=== PATIENT | male | born 1945 | race Caucasian/White ===

== ENCOUNTER 2022-04-28 14:03 | Outpatient (CLI) | payer MEDICARE, SELFPAY ==
[2022-04-28 13:48] LABS: Albumin* 3.9 g/dL (3.3-5.0); Chloride* 104 mmol/L (96-114); Sodium* 139 mmol/L (135-149)
[2022-04-28 13:50] LABS: Carbon Dioxide* 28 mmol/L (20-32); Cholesterol* 160 mg/dL (90-199); Creatinine* 1.1 mg/dL (0.5-1.5); Estimated Glomerular Filt Rate 70 ml/min
[2022-04-28 13:51] LABS: Alanine Aminotransferase* 23 U/L (4-50); Alkaline Phosphatase* 61 U/L (40-150); Aspartate Amino Transferase* 28 U/L (12-35); Bilirubin Total* 0.7 mg/dL (0.1-1.5); Blood Urea Nitrogen* 29 mg/dL (7-30); Glucose* 106 mg/dL (60-115); Triglycerides* 178 mg/dL (40-149)
[2022-04-28 13:52] LABS: HDL Cholesterol* 57 mg/dL (>=40); LDL Cholesterol Calculated 67 mg/dL (<100)
[2022-04-28 14:14] LABS: PSA Screen* 0.69 ng/mL (0.10-4.00)
== END 2022-04-28 14:04 | disposition home or self-care (01) ==
PROVIDERS: PCP Physician Assistant Medical; Visit Provider Physician Assistant Medical
DX: Z00.00 Encounter for general adult medical examination without abnormal findings (principal); Z12.5 Encounter for screening for malignant neoplasm of prostate; Z13.6 Encounter for screening for cardiovascular disorders
CPT/HCPCS: 80053; 80061; 84153

== ENCOUNTER 2022-05-12 10:12 | Outpatient (CLI) | payer MEDICARE, SELFPAY | END 2022-05-12 10:13 | disposition home or self-care (01) | LOC: FRMREF 05-14 12:25 | PROVIDERS: PCP Physician Assistant Medical; Visit Provider Physician Assistant Medical | DX: Z00.00 Encounter for general adult medical examination without abnormal findings (principal); E78.5 Hyperlipidemia, unspecified; R35.0 Frequency of micturition | CPT/HCPCS: 87086 ==

== ENCOUNTER 2022-09-22 07:30 | Outpatient (RCR) | payer MEDICARE, SELFPAY ==
--- NOTE | 2022-09-23 13:39 | PT.OPE ---
PT [place] [facility] Eval PT [facility] Out[facility] Eval Start: 09/20/22 07:26 Freq: Status: Active Protocol: Document 09/20/22 14:10 ALICIAT (Rec: 09/20/22 14:12 CJT [id number]) E-signed By Nahum Kowalski PT Physical Therapy Outpatient Evaluation Insurance Information Recert Due Date 11/19/22 Insurance Name Medicare B Medical Diagnosis M54.31 - R sciatica Treating Diagnosis M54.31 - R sciatica Referring Judith Goodwin PA-C Subjective Subjective Pt presents with complaints of chronic R side sciatica ongoing for about 2 years now. Isn't sure when he started having this issues exactly. Last January/February he was chopping down old tree roots and using a stump edge grinder machine and had some back pain at that time. felt a pop in his L knee around that time as well and was taking a lot of IBP for his pain. Underwent 8 acupuncture treatments around that time and this helped to relieve the pain. Pts pain is better now but he has been sedentary for past 2 weeks. Pt wants to be active and wants to return to working out. His is disabled with MS and he needs to be able to help as much as possible. Pt does report increase in pain after about 5 -10 minutes of standing. Pt uses ice and heat frequently to help reduce his pain. Pt does have symptoms that extend to his lower leg at times, especially after extended periods of walking/standing. Sitting seems to make the pain better. Pt also complains of posterior knee pain on L that increases with bending in WB position. Squatting, bending. twisting makes pain worse. 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 Preferred Name Ray Precautions Therapy Limitations/Systems Review Not Limited Objective Other/Pertinent Objective Lumbar ROM Extension - 20 Flexion - can reach mid shins - feels stretch in HS R/L Side Bend - 18/18 R/L Rotation - mild impairments B LLD 93.0/92/0cm (R/L) R Hip ROM Flexion - 120 Abduction - 30 IR/ER - 10/30 Extension - 5 L Hip ROM Flexion - 120 Abduction - 30 IR/ER - 15/30 Extension - 5 R knee ROM - WNL L knee ROM - WNL R Hip Strength Flexion - 4+/5 MMT Abduction - 4/5 MMT Adduction - 5/5 MMT IR - 5/5 MMT ER - 5/5 MMT Extension - 4+/5 MMT L Hip Strength Flexion - 4+/5 MMT Abduction - 4/5 MMT Adduction - 5/5 MMT IR - 5/5 MMT ER - 5/5 MMT Extension - 4+/5 MMT R knee Extension - 5/5 MMT R Knee Flexion - 5/5 MMT L knee Extension - 5/5 MMT L knee Flexion - 4/5 MMT * pain with resisted knee flexion in posterior L knee R ankle DF - /5 MMT L ankle DF - /5 MMT Palpation: pt reports pain/ tenderness with palpation to Gait: FADIR: MELODY: SLR: Slump: Thessaly's: positive on L Kenneth's: positive for posterior L knee pain Assessment Assessment/Impression Pt is a 77 year old male who presents to OP PT clinic with complaints of R sided sciatica ongoing for past two years. Pts pain oroginates in posterior R hip and radiates to posterior R thigh and posterolateral R leg. This pain was reproduced with direct palpation to pts R piriformis mm in L S/L. Testing reveals deficits in pts hip strength and ROM (see objective). Pts sciatica appears to be caused by a tight piriformis on R at this time. He will benefit from massage, strengthening, and stretching to this region to reduce muscle tissue tension over R sciatic nerve. Kang also brought up concerns with his L knee today. He currently shows signs of meniscal tear on L with positive Thessaly's, Kenneth's tests. Upon palpation it does appear that Kang has a slight Huitron's cyst in his posterior L knee. He does note that this bump was substantially larger several months ago. I asked that he reach out to his PCP regarding a therapy order for this as well as potential advanced imaging to his L knee. He gives verbal understanding. The nature of the pts condition was explained and all questions were answered to the pts satisfaction. Skilled PT services are medically necessary to address deficits and return patient to highest level of function. Recommend physical therapy sessions 2/ week for 8 weeks. Pt agrees with this plan. Printout of HEP was given for I completion and pt gives verbal understanding of each exercise . Primary Functional Limitations Standing, carrying objects Plan of Care Rehabilitation Potential Excellent Physical Therapy Goals STG - To be completed in 2-3 weeks: 1. Pt will report reduction in sciatic pain by factor of 2 so that they may perform all ADLs with tolerable level of pain. 2. Pt will demonstrate ability to perform pelvic tilt with good coordination as indication of appropriate firing of pelvic and lumbar stabilizing muscles to provide greater support for pelvis and lumbar spine. 5. Pt will demonstrate 5/5 MMT for all LE motions without reproduction of pain to provide greater support to pelvis and lumbar spine. 5. Pt will report ability to tolerate 30+ minutes of standing so that they may shop for groceries at store. LTG - To be completed in 8-12 weeks: 1. Pt to be I with HEP so that they may I manage progression of symptoms. 2. Pt will report ability to sleep through the night without waking due to pain so that they may wake well rested with reduced mental fatigue during working hours. 3. Pt will demonstrate 5/5 MMT for both upper and lower abdominals to provide greater support to pelvis and lumbar spine. 4. Pt will report absence of hip and leg pain while helping his with all transfers so that he may fully assist her without pain. Treatment Plan/Direct Interventions Electrical Stimulation,Heat, Ice/Cold/Vasopneumatic,Joint Mobilization,Manual Therapy, Neuromuscular Re-ed,Self-Care/ Home Management,Therapeutic Activities,Therapeutic Exercises Frequency/Duration 2/week for 8 weeks Patient Will Be Discharged From Therapy Completion of LTG(s),Skills Plateau,Independent w/HEP, Independently Progressing Evaluation Billing Untimed Code Treatment Minutes 30 PT Eval No Charge No Complexity Low Certification Information Initial Certification Date 09/20/22 Ending Certification Date 11/19/22 Provider Signature Shows Agreement With POC & Medical Necessity Physician Signature & Date Requested Please Sign/Date Here Physician Comment/Change : Physician NPI Number #
== END 2022-10-05 12:30 | disposition home or self-care (01) ==
PROVIDERS: PCP Physician Assistant Medical; Visit Provider Physician Assistant Medical
DX: M54.31 Sciatica, right side (principal); Z51.89 Encounter for other specified aftercare
CPT/HCPCS: 97110; 97140; 97161

== ENCOUNTER 2023-06-28 09:58 | Outpatient (CLI) | payer MEDICARE, SELFPAY | END 2023-06-28 09:59 | disposition home or self-care (01) | LOC: NFLDREF 07-01 07:07 | PROVIDERS: PCP Physician Assistant Medical; Referring Provider Physician Assistant Medical; Visit Provider Physician Assistant Medical | DX: Z00.00 Encounter for general adult medical examination without abnormal findings (principal); E78.5 Hyperlipidemia, unspecified; R35.0 Frequency of micturition; E78.2 Mixed hyperlipidemia; K21.9 Gastro-esophageal reflux disease without esophagitis | CPT/HCPCS: 80053; 80061; 84153 ==

== ENCOUNTER 2024-06-11 08:15 | Outpatient (CLI) | payer MEDICARE, SELFPAY | END 2024-06-11 08:16 | disposition home or self-care (01) | LOC: NFLDREF 06-12 21:53 | PROVIDERS: PCP Physician Assistant Medical; Referring Provider Physician Assistant Medical; Visit Provider Physician Assistant Medical | DX: E78.2 Mixed hyperlipidemia (principal); N40.1 Benign prostatic hyperplasia with lower urinary tract symptoms; Z12.5 Encounter for screening for malignant neoplasm of prostate; Z13.29 Encounter for screening for other suspected endocrine disorder | CPT/HCPCS: 80053; 80061; 84443; G0103 ==

== ENCOUNTER 2024-08-07 12:37 | Outpatient (CLI) | payer MEDICARE, SELFPAY ==
--- NOTE | 2024-08-07 13:00 | CRLHL7_ITS ---
For Patients: As a result of the Century Cures Act, medical imaging exams and procedure reports are released immediately into your electronic medical record. You may view this report before your referring provider. If you have questions, please contact your health care provider. INDICATION: Low back pain. Right sciatica. COMPARISON: 07/25/2024. Technique Sagittal T1, T2, and STIR sequences. Axial T1 and T2 weighted sequences. FINDINGS: Grade 1 anterolisthesis of L4 on L5 measures approximately 4 mm. Otherwise, normal alignment. No fractures. No vertebral body loss of height. No ligamentous injury. No suspicious osseous lesions. Normal conus terminates at L1. T12-L1 L1-2: No spinal canal or neural foraminal narrowing. L2-3: Disc degeneration and posterior disc bulge. Mild narrowing of spinal canal. No neural foraminal narrowing. L3-4: Disc degeneration and posterior disc bulge. Ouua-ld-cvyindva narrowing of spinal canal. No neural foraminal narrowing. Most arthropathy. L4-5: Grade 1 anterolisthesis. Disc degeneration and posterior disc bulge. Moderate narrowing of spinal canal. Left subarticular recess narrowing with potential impingement of the traversing left L5 nerve root. No neural foraminal narrowing. Mild facet arthropathy. Bilateral facet joint effusions which may indicate joint instability. L5-S1: No spinal canal neural foraminal narrowing. Normal paraspinal soft tissues. IMPRESSION: 1. Grade 1 anterolisthesis of L4 on L5. Otherwise normal alignment. No fractures 2. Lumbar spondylosis. 3. At L2-3, mild narrowing of the spinal canal 4. At L3-4, [id number]-fn-[id number] narrowing of the spinal canal 5. At L4-5, moderate narrowing of the spinal canal. Potential impingement of the traversing left L5 nerve root. Dictated by Werner Vanegas MD @ 08/08/2024 1:52:11 PM (Electronically Signed)
== END 2024-08-07 12:38 | disposition home or self-care (01) ==
LOC: MRI 12:39
PROVIDERS: PCP Physician Assistant Medical; Visit Provider Family Medicine
DX: M54.41 Lumbago with sciatica, right side (principal); M47.892 Other spondylosis, cervical region; M51.26 Other intervertebral disc displacement, lumbar region; G89.29 Other chronic pain
CPT/HCPCS: 72148

== ENCOUNTER 2024-08-14 08:00 | Outpatient (RCR) | payer MEDICARE, SELFPAY ==
--- NOTE | 2024-06-20 16:52 | PT.OPE ---
PT [place] [facility] Eval PT [facility] Outpatient Eval Start: 06/20/24 13:18 Freq: Status: Active Protocol: Document 06/20/24 16:51 CJT (Rec: 06/20/24 16:52 CJT [id number]) E-signed By Nahum Kowalski PT Physical Therapy Outpatient Evaluation Insurance Information Recert Due Date 09/18/24 Insurance Name Medicare B Medical Diagnosis R side sciatica Treating Diagnosis R sciatica Imaging Report Information N/A Referring MD Judith Shields Subjective Preferred Name Ray Subjective Pt presents with complaints of sciatica. Reports that he has been experiencing a sharp pain that can come on at any times, especially when he is active with walking and hiking . Pedaling on a stationary bike is not an issue. Pain only occurs with WB-ing. Has been stretching daily. Demonstrates modified piriformis stretch in supine, piriformis test position in S/ L, and seated firugre-4 stretch. Pt reports that when his pain increases while walking, he will extend his arms out and bend forward while hanging onto his trekking poles. Demos L stretch position and notes that this provides relief. Wants to be able to hike without meds. Has been stretching many times daily for about a year now and this has not relieved symptoms. Pain Comments -03/14 Date of Last Physician Visit 06/18/24 Current Work Status Retired Precautions Therapy Limitations/Systems Review Not Limited Objective Other/Pertinent Objective Lumbar ROM Extension - no limitations, no pain; pt notes gradual production of pain in posterior hip and tingling in lower leg (L5 distribution with prolonged hold) Flexion - can reach just beyond mid hayes, feels some tension in R glute med/PSIS region R/L Side Bend - no limitations R/L Rotation - no limitations R Hip ROM Flexion - 120 IR/ER - 27/34 Extension - 10 L Hip ROM Flexion - 120 IR/ER - 30/32 Extension - 10 R Hip Strength Flexion - 4/5 MMT Abduction - 4/5 MMT Adduction - 5/5 MMT IR - 5/5 MMT ER - 5/5 MMT Extension - 4/5 MMT L Hip Strength Flexion - 5/5 MMT Abduction - 4+/5 MMT Adduction - 5/5 MMT IR - 5/5 MMT ER - 5/5 MMT Extension - 4/5 MMT R knee Extension - 5/5 MMT R Knee Flexion - 5/5 MMT L knee Extension - 5/5 MMT L knee Flexion - 5/5 MMT R ankle DF - 5/5 MMT L ankle DF - 5/5 MMT Palpation: pt reports pain/ tenderness with palpation to R piriformis and glute med Special Testing Slump: negative B SLR: negative B FADIR: negative B MELODY: negative B Carolina's: positive B (R>L) Piriformis: positive R Hamstring: minimally positive B Pelvis: relatively level Leg Length (R/L): 96.0cm/96. 0cm Assessment Assessment/Impression Kang is a very pleasant 79 year old male who presents to our clinic for evaluation and treatment of R side sciatica. Pts pain is reproduced in lumbar extension and relieved with flexion. While his R piriformis is very symptomatic and painful, I do not believe that he is dealing with piriformis syndrome that mimics sciatica. 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 He will likely benefit from education on positioning techniques as well as hip and core strengthening. Furthermore, his anterior hips are very tight which may also be exacerbating symptoms. I would like Kang to try therapy for 4 weeks. If he is not experiencing relief of symptoms, I would like to pursue MRI of the lumbar spine as well as cortisone injection, if appropriate. The nature of the pts condition was explained and all questions were answered to the pts satisfaction. Skilled PT services are medically necessary to address deficits and return patient to highest level of function. Recommend physical therapy sessions 1-2/ week for 4-8 weeks. Pt agrees with this plan. Printout of HEP was given for I completion and pt gives verbal understanding of each exercise . Primary Functional Limitations Walking, hiking Plan of Care Rehabilitation Potential Good Physical Therapy Goals STG - To be completed in 2-3 weeks: 1. Pt will report reduction in hip pain by factor of 2 so that they may go for short hikes with tolerable level of pain. 2. Pt will demonstrate ability to perform pelvic tilt with good coordination as indication of appropriate firing of pelvic and lumbar stabilizing muscles to provide greater support for pelvis and lumbar spine. LTG - To be completed in 8-12 weeks: 1. Pt to be I with HEP so that they may I manage progression of symptoms. 2. Pt will report ability to ambulate at least 30 minutes without symptoms of sciatica as indication of reduced pressure on exiting nerve root . 3. Pt will demonstrate 5/5 MMT for all LE motions without reproduction of pain to provide greater support to pelvis and lumbar spine. Treatment Plan/Direct Interventions Electrical Stimulation,Heat, Ice/Cold/Vasopneumatic,Joint Mobilization,Manual Therapy, Neuromuscular Re-ed,Self-Care/ Home Management,Therapeutic Activities,Therapeutic Exercises Frequency/Duration 1-2/week for 4-8 weeks Patient Will Be Discharged From Therapy Completion of LTG(s),Skills Plateau,Independent w/HEP, Independently Progressing Evaluation Billing Untimed Code Treatment Minutes 55 PT Eval No Charge No Complexity Low Certification Information Initial Certification Date 06/20/24 Ending Certification Date 09/18/24 Provider Signature Required Yes Provider Signature Shows Agreement With POC & Medical Necessity Physician NPI Number Write NPI# Here Physician Comment/Change : Physician Signature & Date Requested Please Sign/Date Here
--- NOTE | 2024-07-16 09:28 | PT.OPDN ---
PT [place] Outpatient Daily Note PT [place] Outpatient Daily Note Start: 06/20/24 13:18 Freq: Status: Active Protocol: Document 07/16/24 08:39 CJT (Rec: 07/16/24 09:28 CJT [id number]) E-signed By Nahum Kowalski, PT PT OP Daily Progress Note Visit Information Note Type Recert/Progress Note Visit Number 5 Physician Authorized Visits eval and treat Insurance Information Recert Due Date 09/18/24 Insurance Name Medicare B Medical Diagnosis R side sciatica Treating Diagnosis R sciatica Imaging Report Information N/A Referring MD Judith Shields Subjective Preferred Name Ray Subjective Isabell for a hike around 2:00pm yesterday. Feels a bit run down today. Pain Comments Date of Last Physician Visit 06/18/24 Home Exercise Home Exercise Comments Access Code: [email or web address] URL: [email or web address]/ Date: 06/26/2024 Prepared by: Nahum Kowalski Exercises - Supine Bridge - 1 x daily - 7 x weekly - 3 sets - 15-20 reps - Side Stepping with Resistance at Thighs - 1 x daily - 7 x weekly - 3 sets - 15-20 reps - Squat - 1 x daily - 7 x weekly - 3 sets - 10-15 reps - Side Plank on Knees - 1 x daily - 7 x weekly - 3 sets - 30-45 seconds hold - Supine Piriformis Stretch with Foot on Ground - 1-2 x daily - 7 x weekly - 1 sets - 30-60 seconds hold - Standing Quad Stretch with Table and Chair Support - 1-2 x daily - 7 x weekly - 1 sets - 30-60 seconds hold Objective Other/Pertinent Objective Lumbar ROM Extension - no limitations, no pain; pt notes gradual production of pain in posterior hip and tingling in lower leg (L5 distribution with prolonged hold) Flexion - can reach just beyond mid hayes, feels some tension in R glute med/PSIS region R/L Side Bend - no limitations R/L Rotation - no limitations R Hip ROM Flexion - 120 IR/ER - 27/34 Extension - 10 L Hip ROM Flexion - 120 IR/ER - 30/32 Extension - 10 R Hip Strength Flexion - 4/5 MMT Abduction - 4/5 MMT Adduction - 5/5 MMT IR - 5/5 MMT ER - 5/5 MMT Extension - 4/5 MMT L Hip Strength Flexion - 5/5 MMT Abduction - 4+/5 MMT Adduction - 5/5 MMT IR - 5/5 MMT ER - 5/5 MMT Extension - 4/5 MMT R knee Extension - 5/5 MMT R Knee Flexion - 5/5 MMT L knee Extension - 5/5 MMT L knee Flexion - 5/5 MMT R ankle DF - 5/5 MMT L ankle DF - 5/5 MMT Palpation: pt reports pain/ tenderness with palpation to R piriformis and glute med Special Testing Slump: negative B SLR: negative B FADIR: negative B MELODY: negative B Carolina's: positive B (R>L) Piriformis: positive R Hamstring: minimally positive B Pelvis: relatively level Leg Length (R/L): 96.0cm/96. 0cm Patient Instructed in Risks/Benefits Yes Therapeutic Exercise Therapeutic Exercise Minutes (minutes) 40 Therapeutic Exercise: To Restore Bike - 8 minutes, seat 12 Functional Status Supine trunk rotations x 10 ea , wide and narrow stance SKTC stretch x 45 ea DKTC stretch x 45 Supine HS stretch x 60 ea Figure-4 piriformis stretch w/ OP [place] ball isometric bridge x 60, 4 x 30 T-spine rotations in S/L x 10 ea S/L hip flexor/quad stretch x 60 ea Sit to stands with 15# goblet hold 3 x 10 Heel raises w/ 15# goblet hold Treatment Minutes Timed Code Treatment Minutes 40 Total Treatment Time 40 Billing Units Therapeutic Exercise Units 3 Assessment/Impression Assessment/Impression Pt tolerates treatment well and notes that he feels pain in his R hip return upon standing at the end of our session today. While Kang has tolerated exercise and other treatment well, none of our treatment has resulted in resolution of symptoms for more than 12-24 hours at a time. 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 At this time I would recommend x-rays of the lumbar spine and referral to our Spine Clinic with Dr. Zavala or Dr. Moran for potential pursual of IDALIA. Pt is in agreement with this plan . Plan of Care Physical Therapy Goals STG - To be completed in 2-3 weeks: 1. Pt will report reduction in hip pain by factor of 2 so that they may go for short hikes with tolerable level of pain. 2. Pt will demonstrate ability to perform pelvic tilt with good coordination as indication of appropriate firing of pelvic and lumbar stabilizing muscles to provide greater support for pelvis and lumbar spine. LTG - To be completed in 8-12 weeks: 1. Pt to be I with HEP so that they may I manage progression of symptoms. 2. Pt will report ability to ambulate at least 30 minutes without symptoms of sciatica as indication of reduced pressure on exiting nerve root . 3. Pt will demonstrate 5/5 MMT for all LE motions without reproduction of pain to provide greater support to pelvis and lumbar spine. Daily Plan of Care Continue per POC
--- NOTE | 2024-07-25 08:38 | REH.PT ---
Kelvin Wong, I've been working with Kang Bob (49) and he has shown minimal improvement in his pain. Would recommend x-rays of lumbar spine to rule in/out stenosis in lower lumbar levels. Pt also interested in referral to spine clinic for potential IDALIA. Please call or message with any questions. Nahum
== END 2024-10-31 13:38 | disposition home or self-care (01) ==
PROVIDERS: PCP Physician Assistant Medical; Visit Provider Physician Assistant Medical
DX: M54.41 Lumbago with sciatica, right side (principal); G89.29 Other chronic pain; Z51.89 Encounter for other specified aftercare
CPT/HCPCS: 97032; 97110; 97140; 97161

== ENCOUNTER 2025-01-01 09:00 | Outpatient (RCR) | payer MEDICARE, SELFPAY ==
--- NOTE | 2024-11-12 15:23 | PT.OPE ---
PT [place] [facility] Eval Start: 11/12/24 09:45 Freq: Status: Active Protocol: Document 11/12/24 15:20 CJT (Rec: 11/12/24 15:22 ALICIAT [id number]) E-signed By Nahum Kowalski PT Physical Therapy Outpatient Evaluation Insurance Information Recert Due Date 02/10/25 Insurance Name Medicare B,are Medical Diagnosis M48.061 - Spinal stenosis, lumbar region without neurogenic claudication Treating Diagnosis M54.5 - low back pain Imaging Report Information MRI - Lumbar - 08/08/24 1. Grade 1 anterolisthesis of L4 on L5. Otherwise normal alignment. No fractures 2. Lumbar spondylosis. 3. At L2-3, mild narrowing of the spinal canal 4. At L3-4, [id number] narrowing of the spinal canal 5. At L4-5, moderate narrowing of the spinal canal. Potential impingement of the traversing left L5 nerve root. Referring Judith Goodwin PAC Subjective Preferred Name Ray Subjective Pt presents with complaints of low back pain with R sided radiculopathy. Pt going [place] [facility] in February. Still having issues with his hiking and standing. Would like to talk about dry needling. Wondering if he should get cortisone injection . Has taken prednisone twice this past winter due to bronchitis. This helped to relieve the pain somewhat. Pain returns upon discontinuing. Pt runs his hand along R hamstring mm belly as source of his pain. Reports that his sciatic pain is actually pretty good today . Sciatic pain was so bad last week that he could hardly walk. This pain along his hamstring feels more muscular in nature. Date of Last Physician Visit 09/18/24 Current Work Status Retired Precautions Therapy Limitations/Systems Review Not Limited Objective Other/Pertinent Objective Lumbar ROM Extension - moderate limitations, no pain Flexion - can reach approx 6-8 inches from toes with knees locked, no pain R/L Side Bend - mild limitations bilaterally, no pain R/L Rotation - DNT R Hip ROM Flexion - WNL IR/ER - 30/35 L Hip ROM Flexion - WNL IR/ER - 25/30 R Hip Strength Flexion - 5/5 MMT Abduction - 5/5 MMT Adduction - 5/5 MMT IR - 5/5 MMT ER - 5/5 MMT Extension - DNT L Hip Strength Flexion - 5/5 MMT Abduction - 5/5 MMT Adduction - 5/5 MMT IR - 5/5 MMT ER - 5/5 MMT Extension - DNT R knee Extension - 4+/5 MMT R Knee Flexion - 5/5 MMT L knee Extension - 4+/5 MMT L knee Flexion - 5/5 MMT R ankle DF - 5/5 MMT L ankle DF - 5/5 MMT Palpation: pt reports pain/ tenderness with palpation to R lumbar paraspinals, glute med , piriformis, and medial hamstrings Gait: no deviations noted, somewhat flexed trunk with ambulation DTRs: 2+ patellar and Achilles tendon bilaterally Special Testing Slump: negative SLR: negative, some pain noted in anterior R hip FADIR: negative B MELODY: negative Carolina's: DNT Piriformis: positive R Hamstring: positive L>R Pelvis: relatively level Leg Length (R/L): 95cm/94cm Assessment Assessment/Impression Kang is a very pleasant 79 year old Male who presents to our clinic for evaluation and treatment of low back pain with lumbar radiculopathy. Pt experiences R LE pain symptoms with extended periods of walking/hiking. He has a trip upcoming in February to [facility] and [place]. He would like to be able to hike daily while on this trip and is worried about his low back and radicular symptoms. 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 As this has been an ongoing issue for Kang , I would recommend a referral to Dr. Jensen for consult on potential IDALIA. Kang will however currently benefit from functional strength training, stretching, and pain relieving techniques here in physical therapy. Today we trialed Dry Needling treatment for reducing soft tissue tension in Kang's low back and R piriformis. He tolerated this quite well and would lie to trial again at his next appointment. The nature of the pts condition was explained and all questions were answered to the pts satisfaction. Skilled PT services are medically necessary to address deficits and return patient to highest level of function. Recommend physical therapy sessions 1-2/ week for 8 weeks. Pt agrees with this plan. Printout of HEP was given for I completion and pt gives verbal understanding of each exercise . Primary Functional Limitations Hiking long distances, sit to stands Plan of Care Rehabilitation Potential Good Physical Therapy Goals STG - To be completed in 2-3 weeks: 1. Pt will report reduction in back and leg pain by factor of 2 so that they may perform all ADLs with tolerable level of pain. 2. Pt will demonstrate ability to perform pelvic tilt with good coordination as indication of appropriate firing of pelvic and lumbar stabilizing muscles to provide greater support for pelvis and lumbar spine. 3. Pt will demonstrate 5/5 MMT for all LE motions without reproduction of pain to provide greater support to pelvis and lumbar spine. 4. Pt will report ability to tolerate 30+ minutes of walking without pain so that he may continue to train for his hiking vacation in February. LTG - To be completed in 8-12 weeks: 1. Pt to be I with HEP so that they may I manage progression of symptoms. 2. Pt will report ability to hike at least 2 hours with max 2/10 pain in low back and R LE so that he may feel confident during his hikes when he is on vacation. Treatment Plan/Direct Interventions Dry Needling,Electrical Stimulation,Heat,Ice/Cold/ Vasopneumatic,Joint Mobilization,Manual Therapy, Neuromuscular Re-ed,Self-Care/ Home Management,Therapeutic Activities,Therapeutic Exercises,Traction (Mechanical ),Ultrasound Frequency/Duration 1-2/week for 8 weeks Patient Will Be Discharged From Therapy Completion of LTG(s),Skills Plateau,Independent w/HEP, Independently Progressing Evaluation Billing Untimed Code Treatment Minutes 55 PT Eval No Charge No Complexity Low Certification Information Initial Certification Date 11/12/24 Ending Certification Date 02/10/25 Provider Signature Required Yes Provider Signature Shows Agreement With POC & Medical Necessity Physician NPI Number Write NPI# Here Physician Comment/Change : Physician Signature & Date Requested Please Sign/Date Here
== END 2025-03-22 09:02 | disposition home or self-care (01) ==
PROVIDERS: PCP Physician Assistant Medical; Visit Provider Physician Assistant Medical
DX: M48.061 Spinal stenosis, lumbar region without neurogenic claudication (principal); M54.59 Other low back pain; M47.896 Other spondylosis, lumbar region; Z51.89 Encounter for other specified aftercare
CPT/HCPCS: 97110; 97140; 97161